=== PATIENT | female | born 1985 | race Caucasian/White ===

== ENCOUNTER → 2020-02-04 | Outpatient (CLI) | payer BC | END | disposition home or self-care (01) | LOC: RAD 10:51 | DX: E04.1 Nontoxic single thyroid nodule (principal); R76.9 Abnormal immunological finding in serum, unspecified; M25.519 Pain in unspecified shoulder; M79.643 Pain in unspecified hand | CPT/HCPCS: 73030; 73130; 73521; 73630; 76536 ==

== ENCOUNTER → 2020-04-05 | Outpatient (CLI) | payer BC ==
[2020-04-05 17:27] LABS: CLARITY URINE CLEAR (CLEAR); COLOR URINE YELLOW (YELLOW); KETONES URINE TRACE (NEGATIVE); LEUKOCYTE ESTERASE URINE 2+ (NEGATIVE); NITRITE URINE NEGATIVE (NEGATIVE); OCCULT BLOOD URINE TRACE (NEGATIVE); PH URINE 7.5 (4.5-8.0); PROTEIN URINE NEGATIVE (NEGATIVE); SPECIFIC GRAVITY URINE 1.019 (1.005-1.030); UROBILINOGEN URINE 0.2 E.U./dL (0.2-1.0)
[2020-04-05 17:30] LABS: C REACTIVE PROTEIN QUANT 2.3 mg/L (0.0-3.0)
[2020-04-07 08:07] LABS: SJOGRENS ANTI SS-A < 0.2 AI (0.0-0.9); SJOGRENS ANTI SS-B < 0.2 AI (0.0-0.9)
== END | disposition home or self-care (01) ==
LOC: LAB 14:12
DX: R76.9 Abnormal immunological finding in serum, unspecified (principal); M79.643 Pain in unspecified hand; R53.82 Chronic fatigue, unspecified
CPT/HCPCS: 36415; 81003; 82550; 85651; 86140; 86160; 86200; 86225; 86235; 86431